=== PATIENT | male | born 2000 | race Caucasian/White ===

== ENCOUNTER 2024-10-23 02:23 | Emergency (ER) | payer MEDICAID ==
[~2024-10-23] VITALS: Ht 172.7 cm; Wt 86.1 kg
[2024-10-23 02:35] VITALS: O2SAT 98
[2024-10-23] MEDS: IBUPROFEN 600MG TABLET PO ONE (04:30)
[2024-10-23] MEDS ORDERED: GUAI-450 MT (04:32)
[2024-10-23] MEDS ORDERED: IBUP-2029 MT (04:32)
[2024-10-23] MEDS ORDERED: ALBU18HF2 IH (04:32)
[2024-10-23 05:26] VITALS: BP 140/78; PULSE 70; RESP 20; TEMP 36.55848; O2SAT 99
== END 2024-10-23 05:30 | disposition home or self-care (01) ==
LOC: ER 02:23
DX: R05.9 Cough, unspecified (principal); J45.909 Unspecified asthma, uncomplicated
CPT/HCPCS: 99282